=== PATIENT | male | born 1960 | race Caucasian/White ===

== ENCOUNTER 2020-12-05 21:18 | Emergency (ER) | payer OTHER ==
[~2020-12-05] VITALS: Ht 177.8 cm; Wt 113.4 kg
[2020-12-06 04:00] VITALS: BP 140/82
[2020-12-06] MEDS ORDERED: KETOROLAC TROMETH 60MG/2ML VIAL IM ONE (04:15)
== END 2020-12-06 05:15 | disposition home or self-care (01) ==
LOC: ER 21:23
DX: S33.5XXA Sprain of ligaments of lumbar spine, initial encounter (principal); M54.16 Radiculopathy, lumbar region; M62.830 Muscle spasm of back; E66.9 Obesity, unspecified; Z68.35 Body mass index [BMI] 35.0-35.9, adult; E11.9 Type 2 diabetes mellitus without complications; X58.XXXA Exposure to other specified factors, initial encounter; Y93.89 Activity, other specified; Y92.89 Other specified places as the place of occurrence of the external cause; Y99.8 Other external cause status
CPT/HCPCS: 72100; 96372; 99283; J1885